=== PATIENT | male | born 1990 | race Caucasian/White ===

== ENCOUNTER 2020-01-07 08:35 | Emergency (ER) | payer MEDICAID ==
[~2020-01-07] VITALS: Ht 172.7 cm; Wt 75.0 kg
[2020-01-07 08:37] VITALS: BP 113/60
== END 2020-01-07 10:46 | disposition home or self-care (01) ==
LOC: EDBD 08:35 → ER 08:35
DX: F41.0 Panic disorder [episodic paroxysmal anxiety] (principal); R00.2 Palpitations; F41.9 Anxiety disorder, unspecified
CPT/HCPCS: 93005; 99283